=== PATIENT | female | born 1970 | race Caucasian/White ===

== ENCOUNTER 2022-02-26 08:12 | Emergency (ER) | payer OTHER ==
[~2022-02-26] VITALS: Ht 162.6 cm; Wt 92.5 kg
[2022-02-26 08:20] VITALS: BP 154/95
--- NOTE | 2022-02-26 08:27 | NUR ---
52 y/o female bib self from home, c/o chest pressure, calderon, anxiety, nausea for 3 days. pt was told by her neurologist that she has high bp from last appointment. 8/10 pressure-like pain. denies cough, sore throat, sob, chills, fever. a&ox4, ambulates with steady gait, pt has droop to left side, normal to baseline in relation to bells palsy. pmh: asthma, fibromyalgia, bells palsy allergy: zoloft (hives) med: ibuprofen 800mg
--- NOTE | 2022-02-26 08:47 | NUR ---
MD SMITH AT BEDSIDE FOR EVALUATION
[2022-02-26 09:14] LABS: BASOPHILS # (AUTO) 0.1 K/uL (0.00-0.22); EOSINOPHILS # (AUTO) 0.2 K/uL (0-0.4); EOSINOPHILS % (AUTO) 2.6 % (0.0-4.0); HEMATOCRIT 38.2 % (36-48); HEMOGLOBIN 12.6 g/dL (12.0-16.0); LYMPHOCYTES # (AUTO) 2.5 K/uL (2.5-16.5); LYMPHOCYTES % (AUTO) 27.5 % (20.5-51.1); MEAN CORPUSCULAR HEMOGLOBIN 26 pg (27-31); MEAN CORPUSCULAR HGB CONC 33 g/dL (33-37); MEAN CORPUSCULAR VOLUME 79.6 fL (80-94); MONOCYTES # (AUTO) 0.4 K/uL (0.8-1.0); MONOCYTES % (AUTO) 4.9 % (1.7-9.3); NEUTROPHILS # (AUTO) 5.7 K/uL (1.8-7.7); PLATELET COUNT (AUTO) 349 K/uL (140-450); RED CELL DISTRIBUTION WIDTH 15.9 % (11.6-13.7); WHITE BLOOD COUNT (AUTO) 8.9 K/uL (4.8-10.8)
[2022-02-26] MEDS ORDERED: ONDANSETRON 4 MG ODT PO ONE (09:20)
[2022-02-26 10:09] LABS: ANION GAP 12.7 (8-16); CARBON DIOXIDE 27.1 mmol/L (21-32); CHLORIDE 105 mmol/L (98-107); CREATININE 0.6 mg/dL (0.6-1.3); GFR ARICAN-AMERICAN 134 mL/min (>90); GLUCOSE 104 mg/dL (74-106); POTASSIUM 3.8 mmol/L (3.5-5.1); SODIUM SERUM 141 mmol/L (136-145); TOTAL BILIRUBIN 0.4 mg/dL (0.0-1.0); UREA NITROGEN, BLOOD 20 mg/dL (7-18)
[2022-02-26 10:23] LABS: ASPARTATE AMINOTRANSFERASE 14 U/L (15-37)
[2022-02-26 10:38] VITALS: BP 140/76
--- NOTE | 2022-02-26 10:38 | NUR ---
Patient discharged with v/s stable. Written and verbal after care instructions FOR NON SPECIFIC CHEST PAIN given and explained. Patient verbalized understanding. Ambulatory with steady gait. All questions addressed prior to discharge. Advised to follow up with PMD.
== END 2022-02-26 10:38 | disposition home or self-care (01) ==
LOC: MED 08:12
DX: R07.9 Chest pain, unspecified (principal); G51.0 Bell's palsy; J45.909 Unspecified asthma, uncomplicated; Z88.8 Allergy status to other drugs, medicaments and biological substances
CPT/HCPCS: 36415; 71045; 80053; 84484; 85025; 93005; 99285; Q0162